=== PATIENT | male | born 1975 | race Caucasian/White ===

== ENCOUNTER 2017-10-27 10:00 | Outpatient (CLI) | payer MEDICAID, SELFPAY | END 2017-10-27 10:01 | PROVIDERS: PCP Internal Medicine; Visit Provider Nurse Practitioner Family | DX: B19.20 Unspecified viral hepatitis C without hepatic coma (principal); F11.20 Opioid dependence, uncomplicated; F43.10 Post-traumatic stress disorder, unspecified | CPT/HCPCS: 99205 ==

== ENCOUNTER 2018-10-15 09:15 | Outpatient (CLI) | payer MEDICAID, SELFPAY ==
[2018-10-15 10:52] LABS: ALT 84 U/L (12-78); AST 42 U/L (15-37); Alkaline Phosphatase 135 U/L (46-116); Anion Gap 9.6 mmol/L (3-11); BUN 10 mg/dL (7-18); Bilirubin, Total 0.4 mg/dL (0.2-1.0); CO2 25.4 mmol/L (21.0-32.0); Chloride 104 mmol/L (98-107); Glucose 120 mg/dL (70-100); Potassium 4.6 mmol/L (3.5-5.1); Sodium 139 mmol/L (136-145); Total Protein 7.2 g/dL (6.4-8.2)
[2018-10-16 12:06] LABS: Syphilis Serology (RPR) Negative (Negative)
[2018-10-16 12:25] LABS: Hepatitis B Surface Ag Negative (NEGAT)
[2018-10-16 12:39] LABS: HIV-1/2 Ag & Ab Screen Negative (NEGAT)
[2018-10-16 14:33] LABS: HCV RNA Detection Quantitative 175500 IU/mL (UNDECT)
== END 2018-10-15 09:35 ==
PROVIDERS: PCP Internal Medicine; Visit Provider Nurse Practitioner Family
DX: B18.2 Chronic viral hepatitis C (principal); Z11.4 Encounter for screening for human immunodeficiency virus [HIV]
CPT/HCPCS: 36415; 80053; 87340; 87389; 86592; 87522

== ENCOUNTER 2019-01-18 15:18 | Outpatient (CLI) | payer MEDICAID, SELFPAY ==
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
== END 2019-01-18 15:38 ==
PROVIDERS: PCP Family Medicine; Visit Provider Nurse Practitioner Family
DX: B18.2 Chronic viral hepatitis C (principal); F11.20 Opioid dependence, uncomplicated; Z79.899 Other long term (current) drug therapy
CPT/HCPCS: 99214

== ENCOUNTER 2019-07-14 10:00 | Outpatient (CLI) | payer MEDICAID, SELFPAY ==
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
== END 2019-07-14 10:20 ==
PROVIDERS: PCP Family Medicine; Visit Provider Nurse Practitioner Family
DX: B18.2 Chronic viral hepatitis C (principal); Z79.899 Other long term (current) drug therapy
CPT/HCPCS: 99214

== ENCOUNTER 2019-07-15 01:53 | Outpatient (CLI) | payer MEDICAID, SELFPAY ==
[2019-07-15 11:48] LABS: Abs Immature Grans 0.01 k/cumm (0.0-0.09); Absolute Basophil Count 0.04 k/cumm (0.0-0.2); Absolute Eosinophil Count 0.09 k/cumm (0.0-0.7); Absolute Lymphocyte Count 1.87 k/cumm (1.2-3.4); Absolute Monocyte Count 0.33 k/cumm (0.11-0.7); Absolute Neutrophil Count 6.34 k/cumm (1.2-6.7); Basophils % 0.5; HCT 41.2 % (40.0-50.0); HGB 14.6 g/dL (13.5-17.5); Immature Grans % 0.1 %; Lymphocytes % 21.5; Mean Corp. HGB Concentration 35.4 g/dL (32.0-36.0); Mean Corpuscular Hemoglobin 31.4 pg (27.0-33.0); Mean Corpuscular Volume 88.6 fL (80-95); Mean Platelet Volume 9.7 fL (8.0-11.0); Monocytes % 3.8; Neutrophils % 73.1; Platelet Count 269 x1000/uL (130-400); RBC 4.65 m/cumm (4.50-6.00); RBC Distribution Width 12.7 % (11.8-14.1); White Blood Cell Count 8.68 k/cumm (4.4-10.8)
[2019-07-15 12:53] LABS: ALT 25 U/L (16-63); AST 21 U/L (15-37); Albumin 4.1 g/dL (3.4-5.0); Alkaline Phosphatase 97 U/L (46-116); Anion Gap 6.3 mmol/L (3-11); BUN 5 mg/dL (7-18); Bilirubin, Total 0.7 mg/dL (0.2-1.0); CO2 27.7 mmol/L (21.0-32.0); CREATININE 0.88 mg/dL (0.70-1.30); Calcium 9.1 mg/dL (8.5-10.1); Chloride 103 mmol/L (98-107); Glucose 108 mg/dL (74-106); Sodium 137 mmol/L (136-145)
[2019-07-19 14:28] LABS: HCV RNA Qualitative Undetected (Undetected)
== END 2019-07-15 02:13 ==
PROVIDERS: PCP Family Medicine; Visit Provider Nurse Practitioner Family
DX: B18.2 Chronic viral hepatitis C (principal); Z79.899 Other long term (current) drug therapy
CPT/HCPCS: 36415; 80053; 87522; 85025

== ENCOUNTER 2019-07-20 14:10 | Outpatient (CLI) | payer MEDICAID, SELFPAY ==
--- NOTE | 2019-07-20 14:14 | CCCE_ITS ---
Date of service: 07/20/19 Time of Service: 14:14 Comprehensive Care Clinic Note Note: Zenon is contacted via tele-health (due to SARS-CoV-2 pandemic) to discuss the lab results drawn on 07/15/2019 in follow up for completing 8 weeks of treatment for HCV chronic infection with Mavyret 100/40mg tabs, 3 tabs a day. He tolerated the medication very well and stated in prior follow up that within a week of starting the medication he felt better than he had in years. 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 he remains ETOH free and is smoking about 1 ppd. he has no other medications and NKDA. Objective: Speech is clear and coherent w/o breathlessness. AST/ALT 21/25 total protein/Albumin 7.0/4/1 Alk Phos 97 Creatinine 00.88 CBD all normal HCV RNA PCR Quantitative - Undetectable A/P Chronic Active HCV x years w successful treatment w Mavyret 100/40/mg 3 tabs a day for 8 weeks Continue w no ETOH, good nutrition, Suboxone RX for OUD and have repeat CMP and HCV RNA PCR Quantitative analysis in 3-4 months to be sure the PCR remains undetectable. Dulce Jauregui NP
== END 2019-07-20 14:30 ==
PROVIDERS: PCP Family Medicine; Visit Provider Nurse Practitioner Family
DX: B18.2 Chronic viral hepatitis C (principal)
CPT/HCPCS: 99213

== ENCOUNTER 2021-11-27 14:53 | Emergency (ER) | payer MEDICAID, SELFPAY ==
[2021-11-27 15:03] VITALS: BP 109/87; PULSE 84; RESP 18; TEMP 36.8; O2SAT 94
--- NOTE | 2021-11-27 15:48 | ED.GENADUL_ITS ---
Discharge Plan Disposition Patient Disposition: HOME Condition: Improving Discharge Details Clinical Impression: Diarrhea Primary Care Provider: Demetri Doyle ED Provider: Cliff Soliz Home Meds and New Rx's Prescriptions: Continued meloxicam 15 mg tablet 15 mg PO DAILY Qty: 90 0RF buprenorphine-naloxone [Suboxone] 8-2 mg film 22 mg Sublingual DAILY Rx Instructions: note dated 08/02/19 cgc ibuprofen 200 MG capsule 400 mg PO PRN PRN acetaminophen [Tylenol] 325 MG tablet 650 mg PO Q6H PRN PRNQty: 30 0RF methadone 5 mg/5 mL Solution 140 mg PO DAILY Discharge Instructions Instructions: Acute Diarrhea (ED) Additional Instructions: Continue stay well-hydrated and if you develop any new or worsening symptoms such as blood in your stool, diarrhea for more than 7 days, black or tarry stools, or mucus in your stool return to the emergency department or your primary care provider for reassessment. You may slowly advance your diet as tolerated and if not improving again in the next week follow-up with your primary care. Stand Alone Forms: Work Release Referrals: Demetri Doyle DO [Primary Care Provider] - Discharge Data Discharge Date/Time-TO BE ENTERED AT DEPARTURE: 11/27/21 15:54 Medical Decision Making Patient presenting to the emergency department for chief complaint of diarrhea. Patient states that around 2 AM he woke up and started having diarrhea. Patient had significant bouts of diarrhea all morning but symptoms are starting to resolve. He states some mild associated nausea otherwise denies any other symptoms. Patient states he is mainly here for a work note due to him missing work today because of the symptoms. Patient does have history of anxiety, hepatitis, and dyspepsia. Physical exam is completely benign with no abdominal pain noted, normal active bowel sounds, no CVA tenderness, no skin findings to suggest acute hepatitis. Given benign exam and resolving symptoms per patient report I do not feel that emergency department work-up is needed at this time. Closely discussed monitoring symptoms along with return and follow-up precaution s otherwise I feel that patient can slowly advance diet as tolerated and return when needed. After discussion of diagnosis and plan of care patient has no further needs, questions, or concerns and states clear understanding to return to the emergency department for any worsening symptoms. This documentation was generated using [employer] system, please disregard any oddities of phrase or misspellings. HPI General Mode of arrival: ambulatory . Date/Time Provider Initiated Documentation: 11/27/21 15:02 . Limitations to Documentation: no limitations . Information obtained by: patient and RN notes reviewed . History of Present Illness 46 year old M presents to the emergency department with the chief complaint of Diarrhea, described as moderate, Quality is described as other (Denies pain), Patient started experiencing this hour(s) (13) and it has been now resolved. No relieving factors improve symptom(s), Eating worsens symptoms ([place] high-fat food) . Patient notes no other symptoms.. Patient did receive the following treatments prior to arrival, none Related Data Home Medications Medication Instructions Recorded Confirmed acetaminophen 325 mg tablet 650 mg PO Q6H PRN PRN #30 tabs 07/17/17 11/27/21 (Tylenol) ibuprofen 200 mg capsule 400 mg PO PRN PRN 07/17/17 11/27/21 meloxicam 15 mg tablet 15 mg PO DAILY #90 tabs 01/29/19 01/29/19 Suboxone 8 mg-2 mg sublingual film 22 mg sublingual DAILY 08/02/19 (buprenorphine-naloxone) methadone 5 mg/5 mL oral solution 140 mg PO DAILY 11/27/21 11/27/21 Previous Rx's Medication Instructions Recorded acetaminophen 325 mg tablet 650 mg PO Q6H PRN PRN #30 tabs 07/17/17 (Tylenol) meloxicam 15 mg tablet 15 mg PO DAILY #90 tabs 01/29/19 Allergies Allergy/AdvReac Type Severity Reaction Status Date / Time No Known Allergies Allergy Verified 11/27/21 15:07 General Stated Complaint: Nausea/Vomit/Diar JOSE: 4 Review of Systems Narrative: 6 systems reviewed and unremarkable except what is marked below. Gastrointestinal Gastrointestinal: Reports as per HPI, Denies abdominal pain, Denies melena, Denies bloating, Denies hematochezia, Denies change in stool character, Reports diarrhea, Reports nausea, Denies vomiting and Denies hematemesis PFSH All Active Problems Diarrhea (Acute) Nicotine dependence, unspecified, uncomplicated (Acute) PTSD (post-traumatic stress disorder) (Acute) Anxiety (Chronic) Vertebral sciatica (Acute) Dyspepsia (Acute) Chronic hepatitis C without hepatic coma (Acute 06/27/17) Lumbar radiculopathy (Acute) Medical History Allergic rhinitis RUQ pain Surgical History H/O spinal fusion (~01/2018) History of cholecystectomy (~07/17/17) Family History Sister Anxiety Father Diabetes Heart disease Hypertension Social History Smoking/Tobacco Use Status: Current every day Tobacco Type: cigarettes Smoking risk assessment performed?: Yes Alcohol Intake: former Drug use: Daily Substance use type: marijuana Details: History of IV Drug Use Adopted: No Caregiver/Support person: No Foster care: No Household members: significant other and family Housing: apartment Do you need help understanding health information?: Rarely Sexually active: Yes Do you think of yourself as: straight/heterosexual Current gender identity: male What is your relationship status?: living with partner Panel score (0-1 are the most socially isolated patients): 1 Do you feel safe at home: Yes Do you feel safe in your relationship?: Yes Exam Const General: cooperative Orientation: alert, awake and oriented x3 Resp Effort & Inspection: normal respiratory effort and able to speak in complete sentences Auscultation: clear to auscultation bilaterally Cardio Rate: regular rate Rhythm: regular rhythm Heart Sounds: S1 normal and S2 normal GI Palpation: soft, not firm, no guarding, no masses, no pulsatile masses, not rigid, no splenomegaly and nontender Auscultation: normal bowel sounds Back/Spine/Pelvis Back: no CVA tenderness Neuro General: patient alert, patient awake, patient oriented x3, gait normal and moves all extremities Course Vital Signs Vital signs: Vital Signs Temperature 36.8 C 11/27/21 15:03 Pulse 84 11/27/21 15:03 Respiratory Rate 18 11/27/21 15:03 Blood Pressure 109/87 11/27/21 15:03 Pulse Oximetry 94 11/27/21 15:03 Temperature 36.8 C 11/27/21 15:03 Temperature Source Core 11/27/21 15:03 Pulse 84 11/27/21 15:03 Respiratory Rate 18 11/27/21 15:03 Respiratory Effort Non-Labored 11/27/21 15:09 Blood Pressure 109/87 11/27/21 15:03 Blood Pressure Position Sitting 11/27/21 15:03 Pulse Oximetry 94 11/27/21 15:03 Oxygen Delivery Method Room Air 11/27/21 15:03 Oxygen Flow Rate 0 11/27/21 15:03
== END 2021-11-27 15:54 | disposition home or self-care (01) ==
PROVIDERS: Emergency Provider Nurse Practitioner Family; PCP Family Medicine
DX: R19.7 Diarrhea, unspecified (principal); R11.0 Nausea; F17.210 Nicotine dependence, cigarettes, uncomplicated
CPT/HCPCS: 99281; 99282

== ENCOUNTER 2022-11-04 11:08 | Emergency (ER) | payer MEDICAID, SELFPAY ==
[2022-11-04 11:11] VITALS: BP 127/85; PULSE 101; TEMP 36.8; O2SAT 100
--- NOTE | 2022-11-04 11:15 | ED.GENADUL_ITS ---
Discharge Plan Disposition Patient Disposition: Home Condition: Improving Discharge Details Clinical Impression: Abscess of hand, Cellulitis and abscess of hand Primary Care Provider: Demetri Doyle ED Provider: Alan Zuleta Meds and New Rx's Prescriptions: New clindamycin HCl 150 mg capsule 150 mg PO TID Qty: 20 0RF naproxen 375 mg tablet 375 mg PO TID PRN (Reason: pain) Qty: 30 0RF Continued meloxicam 15 mg tablet 15 mg PO DAILY Qty: 90 0RF Patient Comments: patient reports no longer taking buprenorphine-naloxone [Suboxone] 8-2 mg film 22 mg Sublingual DAILY Patient Comments: patient reports no longer taking Rx Instructions: note dated 08/02/19 [facility] ibuprofen 200 MG capsule 400 mg PO PRN PRN acetaminophen [Tylenol] 325 MG tablet 650 mg PO Q6H PRN PRNQty: 30 0RF methadone 5 mg/5 mL Solution 140 mg PO DAILY Patient Comments: patient reports no longer taking Discharge Instructions Instructions: Cellulitis (ED), Abscess (ED) Discharge Data Discharge Physician: Alan Zuleta Medical Decision Making MDM: Summary: Patient presents emergency department with a swelling dorsal aspect of the hand with fluctuance and redness around it. [id number] ultrasound the soft tissue of the hand was done showing an abscess and surrounding cellulitis. Abscess was I&D draining about 5 cc of fluids which is purulent and a he iodoform wick was inserted. Patient received IV clindamycin will be discharged on clindamycin with close follow-up at this time there is no evidence of tenosynovitis in the ultrasound does not show tendon compromise. Data Review Analysis All the data on this patient was reviewed by me including laboratory and imaging studies as well as bedside studies performed by me Independent review of Studies Imaging [id number] ultrasound done by me shows abscess and cellulitis but no tenosynovitis Lab: Labs are unremarkable Risk Stratification: Patient with cellulitis and abscess will be discharged home and antibiotics abscess has been drained Differential Diagnosis: 1. Hand abscesses 2. Hand cellulitis 3. Flexor tenosynovitis 4. Necrotizing fasciitis 5. Consultants: Shared disposition: Patient understands disposition will be discharged home on antibiotics Impression: Medical Records Medical records reviewed: Yes I reviewed the patient's medical records. HPI General Date/Time Provider Initiated Documentation: 09/04/23 11:15 . HPI Narrative: Patient presents emergency department complaining of swelling redness and tenderness to the dorsal aspect of his right hand where he thinks he might have been stung by a bug. Reports swelling and a fluctuant structure surrounded by redness denies any fever denies any chills states he does not use needles or IV drugs. Related Data Home Medications Medication Instructions Recorded Confirmed acetaminophen 325 mg tablet 650 mg PO Q6H PRN PRN #30 tabs 18 11/04/22 (Tylenol) ibuprofen 200 mg capsule 400 mg PO PRN PRN 07/17/17 11/04/22 meloxicam 15 mg tablet 15 mg PO DAILY #90 tabs 01/29/19 01/29/19 Suboxone 8 mg-2 mg sublingual film 22 mg sublingual DAILY 08/02/19 (buprenorphine-naloxone) methadone 5 mg/5 mL oral solution 140 mg PO DAILY 11/27/21 11/27/21 clindamycin HCl 150 mg capsule 150 mg PO TID #20 caps 11/04/22 naproxen 375 mg tablet 375 mg PO TID PRN pain #30 tabs 11/04/22 Previous Rx's Medication Instructions Recorded acetaminophen 325 mg tablet 650 mg PO Q6H PRN PRN #30 tabs 07/17/17 (Tylenol) meloxicam 15 mg tablet 15 mg PO DAILY #90 tabs 01/29/19 clindamycin HCl 150 mg capsule 150 mg PO TID #20 caps 11/04/22 naproxen 375 mg tablet 375 mg PO TID PRN pain #30 tabs 11/04/22 Allergies Allergy/AdvReac Type Severity Reaction Status Date / Time No Known Allergies Allergy Verified 11/04/22 11:23 General Stated Complaint: Cellulitis JOSE: 3 Review of Systems Narrative: Review of Systems: Constitutional: No fevers, chills, sweats Eye: No recent visual problems ENT: No ear pain, nasal congestion, sore throat Respiratory: No shortness of breath, cough Cardiovascular: No Chest pain, palpitations, syncope Gastrointestinal: No nausea, vomiting, diarrhea Genitourinary: No hematuria Olvin/Lymph: Negative for bruising tendency, swollen lymph glands Endocrine: Negative for excessive thirst, excessive hunger Musculoskeletal: No back pain, neck pain, joint pain, muscle pain, decreased range of motion Integumentary: No rash, pruritus, abrasions Neurologic: Alert & oriented X 4 Psychiatric: No anxiety, depression PFSH All Active Problems (Updated 11/04/22 @ 13:19 by Alan Zuleta MD) Abscess of hand (Acute) Cellulitis and abscess of hand (Acute) Nicotine dependence, unspecified, uncomplicated (Acute) PTSD (post-traumatic stress disorder) (Acute) Anxiety (Chronic) Vertebral sciatica (Acute) Dyspepsia (Acute) Chronic hepatitis C without hepatic coma (Acute 06/27/17) Lumbar radiculopathy (Acute) Medical History Allergic rhinitis RUQ pain Surgical History H/O spinal fusion (~01/2018) History of cholecystectomy (~07/17/17) Family History Sister Anxiety Father Diabetes Heart disease Hypertension Social History Smoking/Tobacco Use Status: Current every day Tobacco Type: cigarettes Smoking risk assessment performed?: Yes Alcohol Intake: former Drug use: Daily Substance use type: marijuana Details: History of IV Drug Use Adopted: No Caregiver/Support person: No Foster care: No Household members: significant other and family Housing: apartment Do you need help understanding health information?: Rarely Sexually active: Yes Do you think of yourself as: straight/heterosexual Current gender identity: male What is your relationship status?: living with partner Panel score (0-1 are the most socially isolated patients): 1 Do you feel safe at home: Yes Do you feel safe in your relationship?: Yes Exam Narrative Exam Narrative: Exam; vitals signs as reported above normal Constitutional; In no acute distress, afebrile General: cooperative, healthy appearing, comfortable and no acute distress HEENT: Head: normal to inspection, no palpable skull fracture and normocephalic atraumatic Eyes: : appearance normal, both eyes and all related structures EOM intact bilaterally Pupils: PERRL : conjunctiva normal Direct ophthalmoscopy: normal light reflex, normal conjunctiva, normal visual acuity Ears: Normal TM, normal external canal Neck no JVD, supple non tender Neck: normal visual inspection, full ROM and no lymphadenopathy Chest: normal inspection of the chest Respiratory : normal respiratory effort and able to speak in complete sentences no wheezing no rales Cardio Rate: regular rate, rhythm: regular rhythm normal heart sounds S1 and S2 no murmurs, gallops, or rubs GI : normal to inspection, normal bowel sounds, soft, non tender, non distended, no organomegaly Back/Spine/ no CVA tenderness Thoracic/Lumbar Spine: no tenderness or deformities Skin no rashes or lesions Neuro: patient alert and no meningeal signs, Cranial Nerves: CN's II-XI intact bilaterally, Cognition: normal cognition, Speech: speech normal, Gait: normal gait, Depp tendon reflexes normal 2+ muscle strength 5/5 bilaterally Extremities, dorsal swelling of the right hand with a fluctuant masslike structure in the center most likely an abscess and surrounding erythema full range of motion with flexion extension of the tenderness without any difficulty : normal Rectal: defered Course Vital Signs Vital signs: Vital Signs Temperature 36.8 C 11/04/22 11:11 Pulse 101 H 11/04/22 11:11 Blood Pressure 127/85 11/04/22 11:11 Pulse Oximetry 100 11/04/22 11:11 Temperature 36.8 C 11/04/22 11:11 Temperature Source Oral 11/04/22 11:11 Pulse 101 H 11/04/22 11:11 Blood Pressure 127/85 11/04/22 11:11 Blood Pressure Position Sitting 11/04/22 11:11 Pulse Oximetry 100 11/04/22 11:11 Oxygen Delivery Method Room Air 11/04/22 11:11 Oxygen Flow Rate 0 11/04/22 11:11 Pain Level 7 11/04/22 11:11 Procedures Abscess I/D Site: Upper Extremity and Hand Side (if applicable): Right Sedation/analgesia: None Local Anesthetic: Lidocaine 1% and With Epi Amount of anesthesia used (mL): 3 Technique: Incised with #11 Blade Amount of fluid expressed (mL): 5 Irrigation: Yes Packing used?: Iodoform POCUS Exam (ED) Limited Soft Tissue Exam DATE OF EXAM: 11/04/22 TIME OF EXAM: 11:50 PROVIDER THAT PERFORMED THE STUDY: Alan Zuleta LOCATION OF EXAM: Upper extremity/right REASON FOR EXAM: Abscess, Pain, Redness and Swelling VISUALIZED STRUCTURES: Fascia, Muscle, Skin and Subcutaneous tissue PERTINENT FINDINGS/IMPRESSION: Abscess right hand dorsal , Cellulitis right hand and Cobblestoning SC tissue hand . Exam Complete
[2022-11-04] MEDS: CLINDAMYCIN 600 MG/50 ML BAG 100 MG IVPB (11:52)
[2022-11-04 12:19] LABS: Abs Immature Grans 0.02 10^3/uL (0.0-0.06); Absolute Basophil Count 0.04 10^3/uL (0.0-0.2); Absolute Eosinophil Count 0.06 10^3/uL (0.0-0.7); Absolute Lymphocyte Count 1.63 10^3/uL (1.2-3.4); Absolute Monocyte Count 0.35 10^3/uL (0.1-0.8); Absolute Neutrophil Count 3.83 10^3/uL (1.2-6.7); Basophils % 0.7; HGB 14.2 g/dL (13.5-17.5); Immature Grans % 0.3; Lymphocytes % 27.5; MCH 31.3 pg (27.0-33.0); MCHC 33.8 % (32.0-36.0); MCV 93 fL (80-95); MPV 10.2 fL (8.0-11.0); Monocytes % 5.9; Neutrophils % 64.6; Platelet Count 291 10^3/uL (130-400); RBC 4.53 10^6/uL (4.36-5.78); RDW 12.7 % (11.8-14.1); RDW-SD 43.6 fL; WBC 5.93 10^3/uL (4.4-10.8)
[2022-11-04 12:33] LABS: ALT 30 U/L (16-63); AST 22 U/L (15-37); Albumin 3.7 g/dL (3.4-5.0); Alkaline Phosphatase 91 U/L (46-116); Anion Gap 6.2 mmol/L (3-11); BUN 7 mg/dL (7-18); Bilirubin, Total 0.4 mg/dL (0.2-1.0); CO2 29.8 mmol/L (21.0-32.0); CREATININE 0.7 mg/dL (0.70-1.30); Chloride 106 mmol/L (98-107); Glucose 64 mg/dL (74-106); Sodium 142 mmol/L (136-145)
[2022-11-04 13:31] VITALS: BP 140/74; PULSE 87; RESP 16; O2SAT 95
== END 2022-11-04 13:31 | disposition home or self-care (01) ==
PROVIDERS: Emergency Provider Emergency Medicine Emergency Medical Services; PCP Family Medicine
DX: L03.113 Cellulitis of right upper limb (principal); L02.511 Cutaneous abscess of right hand
CPT/HCPCS: 10061; 76882; 80053; 96365; 99284; 85025